=== PATIENT | male | born 1995 | race Hispanic/Latino ===

== ENCOUNTER 2023-11-30 22:24 | Emergency (ER) | payer OTHER ==
[~2023-11-30] VITALS: Ht 172.7 cm; Wt 75.0 kg
[2023-11-30] MEDS ORDERED: Diph, Acellular Pertussis, Tet 0.5 ML/VIAL (Tdap) SDV IM ONE (23:35)
[2023-11-30] MEDS ORDERED: IBUPROFEN 600 MG/TAB PO ONE (23:35)
[2023-11-30] MEDS ORDERED: ACETAMINOPHEN 500 MG TAB PO ONE (23:35)
[2023-11-30] MEDS ORDERED: SILVER SULFADIAZINE 50 GM/TUBE EA TOP ONE (23:40)
[2023-11-30] MEDS ORDERED: SILVADENE1 % EX (23:41)
[2023-12-01 00:55] VITALS: BP 109/65
== END 2023-12-01 00:55 | disposition home or self-care (01) | DRG 935 ==
LOC: ED 22:24
PROC: 2W2FX4Z Dressing of Left Hand using Bandage (ICD-10-PCS; principal; 2023-12-01)
DX: T23.262A Burn of second degree of back of left hand, initial encounter (principal); T31.0 Burns involving less than 10% of body surface; X13.1XXA Other contact with steam and other hot vapors, initial encounter; Y93.89 Activity, other specified; Y92.89 Other specified places as the place of occurrence of the external cause; Y99.0 Civilian activity done for income or pay

== ENCOUNTER 2024-07-13 19:39 | Emergency (ER) | payer OTHER ==
[~2024-07-13] VITALS: Ht 172.7 cm; Wt 79.0 kg
[~2024-07-13 19:39] MED LIST: SILVADENE1 % EX
[2024-07-13] MEDS ORDERED: PENicillin V POTASSIUM 500 MG/TAB PO ONE (20:10)
[2024-07-13] MEDS ORDERED: PENICILLN VK500 MG PO (20:11)
[2024-07-13 21:20] VITALS: BP 141/96
== END 2024-07-13 21:20 | disposition home or self-care (01) | DRG 153 ==
LOC: ED 19:39
DX: J02.0 Streptococcal pharyngitis (principal)
CPT/HCPCS: J1100

== ENCOUNTER 2024-07-17 02:39 | Emergency (ER) | payer OTHER ==
[~2024-07-17] VITALS: Ht 172.7 cm; Wt 75.0 kg
[~2024-07-17 02:39] MED LIST changes: +PENICILLN VK500 MG PO
[2024-07-17] MEDS ORDERED: SODIUM CHLORIDE 0.9% 1,000 ML IV ONE ×2 (02:55→05:50)
[2024-07-17] MEDS ORDERED: MORPHINE SULFATE 4 MG/ML VIAL IV ONE ×2 (02:55→06:20)
[2024-07-17] MEDS ORDERED: KETOROLAC TROMETHAMINE 30 MG/ML SDV IV ONE (02:55)
[2024-07-17 03:10] LABS: BASO% 0.2 % (0-3); EOS% 1.7 % (0-8); HEMOGLOBIN 15.2 g/dl (14.0-18.0); IMMATURE GRANULOCYTES 0.2 % (0.0-5.0); LYMPH% 23.8 % (15-41); MEAN CORPUSCULAR HGB 28.1 pG CALC (26.0-32.0); MONO% 10.3 % (2-13); NEUT# 7.96 thou/uL (1.82-7.42); NEUT% 63.8 % (42-76); RED BLOOD COUNT 5.41 mill/uL (4.70-6.10); RED CELL DISTRI WIDTH 12.1 % (11.5-15.5)
[2024-07-17 03:26] LABS: CREATININE 0.7 mg/dL (0.7-1.3); POTASSIUM 4.4 mmol/l (3.5-5.1)
[2024-07-17] MEDS ORDERED: PIPERACILLIN Sodium-Tazobactam 3.375 GM in SODIUM CHLORIDE 0.9% 100 ML IV ONE (05:50)
[2024-07-17] MEDS ORDERED: PROMETHAZINE HCL 25 MG/ML AMP IV ONE (06:20)
[2024-07-17 07:30] VITALS: BP 127/86
== END 2024-07-17 07:31 | DRG 153 ==
LOC: ED 02:39
PROVIDERS: Family Medicine
DX: J36 Peritonsillar abscess (principal); Z72.0 Tobacco use; Z20.822 Contact with and (suspected) exposure to COVID-19
CPT/HCPCS: J2543; J2550; Q9967